=== PATIENT | female | born 1970 | race Caucasian/White ===

== ENCOUNTER 2018-03-28 14:56 | Outpatient (CLI) | payer BC ==
--- NOTE | 2018-03-28 16:25 | RAD ---
RIGHT FOOT THREE VIEWS: History: Pain. Fall. Comparison: None. FINDINGS: There is a minimally displaced fracture involving the base of the fifth metatarsal. Associated soft t issue swelling. Additional fractures are not appreciated. Joint spaces are preserved. Lisfranc alignm ent is maintained. IMPRESSION: Fracture along the base of the fifth metatarsal. Code T POS: [facility]
--- NOTE | 2018-03-28 17:51 | RAD ---
RIGHT ANKLE THREE VIEWS: 03/28/18 HISTORY: Fall. Pain. FINDINGS: Joint spaces are preserved. Ankle mortise is intact. No evidence of fracture with regards to the ankl e. There is a fracture involving the base of the fifth metatarsal. Reference separate foot radiograph report for further detail. IMPRESSION: Fracture along the base of the fifth metatarsal. POS: [facility]
== END 2018-03-28 14:57 | disposition home or self-care (01) ==
LOC: BICRAD 14:56
PROVIDERS: ATTEND Family Medicine
DX: M25.571 Pain in right ankle and joints of right foot (principal); S92.351A Displaced fracture of fifth metatarsal bone, right foot, initial encounter for closed fracture; W19.XXXA Unspecified fall, initial encounter

== ENCOUNTER 2022-05-29 17:30 | Outpatient (CLI) | payer BC | END 2022-05-29 17:31 | disposition home or self-care (01) | LOC: SLEEPLAB 17:30 | PROVIDERS: ATTEND Family Medicine | DX: R06.83 Snoring (principal); G47.33 Obstructive sleep apnea (adult) (pediatric) | CPT/HCPCS: 95800 ==